=== PATIENT | male | born 1950 | race Caucasian/White ===

== ENCOUNTER 2018-01-26 16:27 | Emergency (ER) | payer OTHER, MEDICARE ==
[2018-01-26 17:02] LABS: #Eosinphils 0.4 thou/uL (0.0-0.7); #Lymphocytes 1.8 thou/uL (1.20-3.40); #Neutrophils 8.4 thou/uL (1.40-6.50); %Eosinophils 3.3 % (0.0-10.0); %Lymphocytes 15.8 % (21.0-51.0); %Monocytes 8.5 % (0.0-10.0); %Neutrophils 72.4 % (42.0-75.0); Hemoglobin 13.1 g/dL (14.0-18.0); Mean Corpuscular HGB CONC 31.3 g/dL (32.0-36.0); Mean Corpuscular Hemoglobin 30.3 pg (27.0-31.0); Mean Corpuscular Volume 96.8 fL (78.0-98.0); Mean Platelet Volume 6.1 fL (7.4-10.4); Platelet Count 406 thou/uL (130-400); RBC Distribution Width 13.2 % (11.5-14.5); Red Blood Cell (RBC) Count 4.31 mill/uL (4.70-6.10); White Blood Cell (WBC) Count 11.6 thou/uL (4.8-10.8)
[2018-01-26 17:22] LABS: ALT (SGPT) 11 U/L (8-55); AST (SGOT) 22 U/L (5-34); Albumin 3.7 g/dL (3.4-4.8); Alkaline Phosphatase 92 U/L (40-150); Anion Gap 9 mmol/L (10-20); BUN (Urea Nitrogen) 21 mg/dL (8.4-25.7); Bilirubin, Total 0.4 mg/dL (0.2-1.2); Calc. Creatinine Clearance 0 mL/min (70-130); Carbon Dioxide 22 mmol/L (23-31); Chloride 108 mmol/L (98-107); Estimated GFR-MDRD 90; Glucose 102 mg/dL (80-115); Potassium 4.4 mmol/L (3.5-5.1); Protein, Total 6.7 g/dL (5.8-8.1); Sodium 135 mmol/L (136-145)
[2018-01-26 17:25] LABS: Troponin I 0.013 ng/mL (< 0.028)
[2018-01-26] MEDS ORDERED: Azithromycin 250 MG TAB ONE ×2 (17:40)
[2018-01-26] MEDS ORDERED: Albuterol Sulfate 2.5 mg/3 ml Neb ONE (17:52)
--- NOTE | 2018-01-26 17:52 | RAD ---
SINGLE VIEW CHEST: Date: 01/16/18 COMPARISON: None. HISTORY: Shortness of breath and chest pain. FINDINGS: Single view of the chest shows a normal sized cardiomediastinal silhouette. There is no evidence of c onsolidation, mass, or pleural effusion. The bones are unremarkable. IMPRESSION: No evidence of acute cardiopulmonary disease. POS: TPC
[2018-01-26] MEDS ORDERED: Ibuprofen 200 MG TAB ONE (19:40)
[2018-01-26] MEDS ORDERED: Magnesium 2 GM/50 ML BAG (IN WATER) ONE (20:16)
--- NOTE | 2018-01-30 15:45 | EKG ---
Test Reason : Blood Pressure : / mmHG Vent. Rate : 090 BPM Atrial Rate : 090 BPM P-R Int : 166 ms QRS Dur : 080 ms QT Int : 370 ms P-R-T Axes : 088 041 069 degrees QTc Int : 452 ms Sinus rhythm with Premature atrial complexes with Abberant conduction Low voltage QRS Cannot rule out Anterior infarct , age undetermined Abnormal ECG Confirmed by MICHAEL ANGEL DO ([id number]), editor greeting card CADY TUCKER ([id number]) on 01/30/2018 3:45:06 PM Referred By: Confirmed By:MICHAEL ANGEL DO
== END 2018-01-27 01:49 | disposition short-term general hospital (02) ==
LOC: ERS 16:27
DX: J44.1 Chronic obstructive pulmonary disease with (acute) exacerbation (principal); F17.210 Nicotine dependence, cigarettes, uncomplicated; Z79.899 Other long term (current) drug therapy
CPT/HCPCS: 36415; 71045; 80053; 82553; 84145; 84484; 85025; 93005; 94640; 96365; J7611; J7620

== ENCOUNTER 2018-06-21 16:31 | Inpatient (IN) | payer MEDICARE, OTHER ==
[~2018-06-21 16:31] MED LIST: Iopamidol 370 76% 100 ML VIAL ONE
--- NOTE | 2018-06-21 17:14 | RAD ---
FExam: Chest one view HISTORY:COPD exacerbation, dyspnea Comparison: 01/26/2018 FINDINGS: Lungs: Hyperinflated lungs with interstitial prominence bilaterally Cardiac silhouette:Accentuated by portable technique and rotation Pulmonary vessels: Stable Pleural Spaces: Clear Pneumothorax: None Osseous abnormalities: None of acuity. IMPRESSION: COPD
[2018-06-21 17:18] LABS: #Basophils 0.1 thou/uL (0.0-0.2); #Eosinphils 0.5 thou/uL (0.0-0.7); #Monocytes 0.9 thou/uL (0.11-0.59); #Neutrophils 9.4 thou/uL (1.40-6.50); %Basophils 0.5 % (0.0-1.0); %Eosinophils 4.1 % (0.0-10.0); %Lymphocytes 15.4 % (21.0-51.0); %Monocytes 7.2 % (0.0-10.0); %Neutrophils 72.9 % (42.0-75.0); Hemoglobin 14.2 g/dL (14.0-18.0); Mean Corpuscular HGB CONC 32.2 g/dL (32.0-36.0); Mean Corpuscular Hemoglobin 30.1 pg (27.0-31.0); Mean Corpuscular Volume 93.4 fL (78.0-98.0); Mean Platelet Volume 6.4 fL (7.4-10.4); Platelet Count 344 thou/uL (130-400); RBC Distribution Width 13.9 % (11.5-14.5); Red Blood Cell (RBC) Count 4.72 mill/uL (4.70-6.10); White Blood Cell (WBC) Count 12.8 thou/uL (4.8-10.8)
[2018-06-21 17:29] LABS: ALT (SGPT) 11 U/L (8-55); AST (SGOT) 19 U/L (5-34); Albumin 4.1 g/dL (3.4-4.8); Alkaline Phosphatase 72 U/L (40-150); Anion Gap 15 mmol/L (10-20); BUN (Urea Nitrogen) 29 mg/dL (8.4-25.7); Bilirubin, Total 0.6 mg/dL (0.2-1.2); Calc. Creatinine Clearance 0 mL/min (70-130); Calcium 9.3 mg/dL (7.8-10.44); Carbon Dioxide 21 mmol/L (23-31); Chloride 104 mmol/L (98-107); Estimated GFR-MDRD 60; Globulin 2.8 g/dL (2.4-3.5); Glucose 98 mg/dL (80-115); Potassium 4.3 mmol/L (3.5-5.1); Protein, Total 6.9 g/dL (5.8-8.1); Sodium 136 mmol/L (136-145)
[2018-06-21 17:58] LABS: Actual Bicarbonate (HCO3a) 22.4 mEq/L (22-28); Analyzer IN Cardio ER; Base Excess (BEa) -1.1 mEq/L (-2.0 to +3.0); CO2 Tension 34.2 mmHg (35.0-45.0); Calcium, Ionized 1.23 mmol/L (1.12-1.30); Carboxyhemoglobin (COHb) 0.9 gm% (0.0-3.0); Hemoglobin (Hb) 14.8 g/dL (14.0-18.0); O2 Tension (PaO2) 66.7 mmHg (> 80.0); Potassium - ABG Lab 4.38 mmol/L (3.70-5.30); pH, Arterial 7.43 (7.35-7.45)
[2018-06-21 18:02] LABS: Puncture Site RR
[2018-06-21] MEDS ORDERED: Magnesium 2 GM/50 ML BAG (IN WATER) ONE (18:54)
[2018-06-21] MEDS ORDERED: Lorazepam 2 MG/ML VIAL ONE (19:36)
[2018-06-21] MEDS ORDERED: Azithromycin 500 MG VIAL ONE (19:43)
--- NOTE | 2018-06-21 20:23 | CT ---
FCT angiogram thorax with contrast: (CTA pulmonary angiogram) HISTORY: 68-year-old male with dyspnea TECHNIQUE: IV injection of iodinated contrast. Scan acquisition timing attempted to coincide with iodinated contrast bolus reaching maximal density in pulmonary arteries. 3-D MIP reconstructions. FINDINGS: Diffuse, severe emphysematous changes throughout both lungs, including multiple bullae at lung apices , and centrilobular emphysematous changes throughout the lungs. Approximately 20% of the stomach has herniated into the inferior mediastinum. No cardiomegaly. Tortuosity of thoracic aorta without dissec tion or aneurysm. Images are degraded by patient breathing motion. There is no pulmonary thromboembol ism. No pleural effusion or pneumothorax. No mediastinal or hilar lymphadenopathy. No airspace opacit y, suspicious pulmonary nodule, or pulmonary edema. IMPRESSION: 1) severe panlobular emphysema. 2) no pulmonary thromboembolism. 3) no acute findings
[2018-06-21] MEDS ORDERED: cefTRIAXone\\ROCEPHIN 1 GM VIAL ONE (21:38)
[2018-06-21] MEDS ORDERED: Ketorolac Tromethamine 30 MG/ML VIAL ONE (21:38)
[2018-06-21] MEDS ORDERED: Sodium Chloride 0.65% Nasal 44 ML BOT EA NARE PRN (22:00)
[2018-06-21] MEDS ORDERED: Calcium Carbonate 500 MG ChewTAB PO PRN (22:00)
[2018-06-21] MEDS ORDERED: HYDROcodone/Acetaminophen 5/325 mg Tablet PO PRN (22:00)
[2018-06-21] MEDS ORDERED: Bisacodyl 10 MG SUPP PR PRN (22:00)
[2018-06-21] MEDS ORDERED: Temazepam 15 MG CAP PO PRN (22:00)
[2018-06-21] MEDS ORDERED: Loperamide HCl 2 MG CAP PO PRN (22:00)
[2018-06-21] MEDS ORDERED: hydrALAZINE 20 MG/ML VIAL SLOW IVP PRN (22:00)
[2018-06-21] MEDS ORDERED: Eucerin (Mineral Oil/Petrolatum,White) 30 gm Jar TOP PRN (22:00)
[2018-06-21] MEDS ORDERED: Loratadine 10 MG TAB PO PRN (22:00)
[2018-06-21] MEDS ORDERED: Diabetic Tussin 200 MG/10 ML UDCUP PO PRN (22:00)
[2018-06-21] MEDS ORDERED: Artificial Tears 18 DROP/0.9 ML EA EYE PRN (22:00)
[2018-06-21 22:35] VITALS: BMI 18.5
[2018-06-21] MEDS: methylPREDNISolone Sod Succ 40 MG VIAL IVP SCH (23:41)
[2018-06-21] MEDS ORDERED: methylPREDNISolone Sod Succ/PF 125 MG/2 ML VIAL IVP SCH (23:59)
[2018-06-22 00:07] LABS: Troponin I 0.021 ng/mL (< 0.028)
--- NOTE | 2018-06-22 02:45 | HP ---
PRIMARY CARE PHYSICIAN: Dr. Andres Avendano at [facility]. DATE OF SERVICE: 06/21/2018 REASON FOR ADMISSION: Acute on chronic respiratory failure, COPD exacerbation. HISTORY OF PRESENT ILLNESS: A 68-year-old male who has underlying history of severe emphysema as well as chronic respiratory failure, on home oxygen therapy who presented to emergency room because of increasing shortness of breath. The patient was tachypneic, tachycardic at home. He was not able to talk in full sentence. This patient has several admission in different hospital for COPD exacerbation as well as several emergency room visit. This patient is normally following at [facility] in [place]. In the emergency room, they got approval to stay in our hospital. He was not stable to be discharged because initially he required CPAP machine in the emergency room and subsequently, he slightly improved. At that point, CPAP machine was discontinued and we decided to keep this patient in the hospital. The patient was also anxious and he responded well in the emergency room. He received Rocephin, azithromycin, and several rounds of DuoNeb therapy. When I saw this patient in the emergency room at that time, he was still having shortness of breath, but improved after BiPAP. ALLERGIES: NO KNOWN DRUG ALLERGIES. CURRENT HOME MEDICATIONS: 1. Albuterol nebulization 4 times daily. 2. Amlodipine 5 mg daily. 3. Lipitor 5 mg daily. 4. Pulmicort nebulization twice daily. 5. Vitamin D3 of 2000 units p.o. daily. 6. Mucinex 400 mg twice daily. 7. Claritin 10 mg daily as needed. 8. Magnesium oxide 400 mg daily. 9. Flomax 0.4 mg p.o. daily. PAST MEDICAL HISTORY: Severe COPD; chronic respiratory failure, on home oxygen; benign enlargement of prostate, hypertension, vitamin D deficiency, dyslipidemia. PAST SURGICAL HISTORY: Hernia x2, tonsillectomy, appendicectomy, left knee surgery. PAST PSYCHIATRIC HISTORY: Reviewed and negative. SOCIAL HISTORY: The patient is . He is former smoker. He quit smoking one year ago. He drinks alcohol socially. He denies any other illicit drug abuse. The patient has history of smoking half pack per day for 30 years. REVIEW OF SYSTEMS: CONSTITUTIONAL: Negative for weight loss or gain, ability to conduct usual activities. SKIN: Negative for rash, itching. EYES: Negative for double vision, pain. ENT/MOUTH: Negative for nose bleeding, neck stiffness, pain, tenderness. CARDIOVASCULAR: Negative for palpitations, dyspnea on exertion, orthopnea. RESPIRATORY: Negative for shortness of breath, wheezing, cough, hemoptysis, fever or night sweats. GASTROINTESTINAL: Negative for poor appetite, abdominal pain, heartburn, nausea , vomiting, constipation, or diarrhea. GENITOURINARY: Negative for urgency, frequency, dysuria, nocturia. MUSCULOSKELETAL: Negative for pain, swelling. NEUROLOGIC/PSYCHIATRIC: Negative for anxiety, depression. ALLERGY/IMMUNOLOGIC: Negative for skin rash, bleeding tendency. Please see my HPI for pertinent positives and negatives. All other review of systems reviewed and negative except as mentioned in HPI. FAMILY HISTORY: No strong family history of premature coronary artery disease, stroke, or cancer. EMERGENCY ROOM COURSE: The patient has received Toradol, Rocephin 1 g, azithromycin 500 mg, Ativan 1 mg, magnesium sulfate 2 g, DuoNeb therapy. PHYSICAL EXAMINATION: VITAL SIGNS: On arrival, blood pressure 142/105, pulse 110, respiratory rate 34 , temperature 99, and saturation 99% on 2 L oxygen. Weight 60.3 kg. GENERAL: The patient is currently alert, awake, mild respiratory distress. HEENT: Head; normocephalic, atraumatic. Eyes; pupils round, reactive to light. Extraocular muscle intact. ENT: Oropharynx within normal limits. Moist mucous membranes. No oral lesion. No pharyngeal erythema. No exudate. NECK: Supple. No JVD. No thyromegaly. No carotid bruit. No jugular venous distention. LUNGS: Air entry reduced bilaterally. No wheeze. No accessory muscles of respiration in use. CARDIAC: S1 and S2, regular. Tachycardia. No murmur. No gallop. No rub. ABDOMEN: Soft. Bowel sounds present. Nontender. Nondistended. No organomegaly. No mass. No suprapubic tenderness. BACK: Unremarkable. No CVA tenderness. EXTREMITIES: Upper extremities; passive movement of all joints normal. Lower extremity, no edema. Good distal pulsation. SKIN: No skin rash. HEMATOLOGICAL: No lymphadenopathy. PSYCHIATRIC: Normal affect. SIGNIFICANT LABORATORY DATA: EKG showing sinus tachycardia, low voltage QRS. Chest x-ray showing COPD changes. CT angiography, no evidence of pulmonary embolism. COPD changes. CBC; WBC 12.8, hemoglobin 14.2, platelets 344. ABG; pH 7.43, bicarb 22.4, CO2 34.2, O2 66.7. BMP; sodium 136, potassium 4.3, chloride 104, carbon dioxide 21, BUN 29, creatinine 1.20, glucose 98, calcium 9.3. LFTs; AST is 19, ALT 11, alkaline phosphatase 72, and albumin 4.1. Cardiac enzyme negative x3. ASSESSMENT AND PLAN: 1. Acute on chronic respiratory failure with hypoxia. The patient required BiPAP in the emergency room for mild respiratory distress secondary to chronic obstructive pulmonary disease that was turned off after short-term. Currently stabilized. 2. Chronic obstructive pulmonary disease exacerbation. The patient has end- stage chronic obstructive pulmonary disease. He had several admission for flare up and emergency room visit. At this point, the patient has some improvement, but he is not ready to be discharged. We will continue with DuoNeb q.4 hourly, Solu- Medrol 40 mg IV q.6 hourly, Dulera 2 puffs inhalation b.i.d., empiric antibiotic therapy with Levaquin 750 mg daily, symptomatic treatment. If the patient condition does not improve in next 24 to 48 hours, then we will consider changing to inpatient status. 3. Hypertension. We will continue amlodipine 5 mg p.o. daily. 4. Dyslipidemia. We will continue Lipitor 5 mg p.o. daily. 5. Vitamin D deficiency. Continue vitamin D3 of 2000 units p.o. daily. 6. Benign enlargement of prostate. Continue Flomax 0.4 mg p.o. daily. 7. Gastroesophageal reflux disease. Continue Protonix 40 mg p.o. daily. CODE STATUS: The patient is full code. The patient's is surrogate decision maker. DISPOSITION PLAN: Disposition plan based on clinical course. Plan of care discussed with the patient and his at bedside in detail. Job ID: [id number] MTDD
[2018-06-22] MEDS: methylPREDNISolone Sod Succ 40 MG VIAL IVP SCH ×4 (05:19→23:34)
[2018-06-22 05:26] LABS: #Lymphocytes 1.1 thou/uL (1.20-3.40); #Monocytes 0.4 thou/uL (0.11-0.59); #Neutrophils 8.4 thou/uL (1.40-6.50); %Basophils 0.2 % (0.0-1.0); %Eosinophils 0.3 % (0.0-10.0); %Lymphocytes 11.3 % (21.0-51.0); %Monocytes 3.5 % (0.0-10.0); %Neutrophils 84.7 % (42.0-75.0); Hemoglobin 12.3 g/dL (14.0-18.0); Mean Corpuscular HGB CONC 32.1 g/dL (32.0-36.0); Mean Corpuscular Hemoglobin 30.2 pg (27.0-31.0); Mean Corpuscular Volume 94.1 fL (78.0-98.0); Mean Platelet Volume 6.6 fL (7.4-10.4); Platelet Count 305 thou/uL (130-400); RBC Distribution Width 13.6 % (11.5-14.5); Red Blood Cell (RBC) Count 4.07 mill/uL (4.70-6.10); White Blood Cell (WBC) Count 9.9 thou/uL (4.8-10.8)
[2018-06-22 05:49] LABS: Anion Gap 14 mmol/L (10-20); BUN (Urea Nitrogen) 39 mg/dL (8.4-25.7); Calc. Creatinine Clearance 42 mL/min (70-130); Calcium 9.2 mg/dL (7.8-10.44); Carbon Dioxide 23 mmol/L (23-31); Chloride 104 mmol/L (98-107); Estimated GFR-MDRD 50; Glucose 215 mg/dL (80-115); Potassium 4.3 mmol/L (3.5-5.1); Sodium 137 mmol/L (136-145)
[2018-06-22] MEDS: Mometasone/Formoterol 120 PUFF INHALER INH SCH ×2 (06:27→18:15)
[2018-06-22] MEDS ORDERED: Mometasone Furoate 120 PUFF 220 MCG INH SCH (06:30)
[2018-06-22] MEDS: Enoxaparin Sodium 40 MG/0.4 ML SYRINGE SC SCH (08:12)
[2018-06-22] MEDS: Atorvastatin Calcium 10 MG TAB PO SCH (08:13)
[2018-06-22] MEDS: Amlodipine 5 MG TAB PO SCH (08:15)
[2018-06-22] MEDS: guaiFENesin ER 600 MG TAB PO SCH ×2 (08:15→21:02)
[2018-06-22] MEDS: Magnesium Oxide 400 MG TAB PO SCH (08:15)
[2018-06-22] MEDS: Tamsulosin HCl 0.4 MG CAP PO SCH (08:15)
[2018-06-22] MEDS ORDERED: Prevnar 13-Val Conj/PF 0.5 ML SYRINGE IM ONE (09:00)
[2018-06-22] MEDS ORDERED: Famotidine 20 MG TAB PO SCH (09:00)
[2018-06-22] MEDS ORDERED: Non-Formulary Item 1 EACH (Budesonide [Pulmicort Flexhaler] 2 PUFF) INH SCH (09:00)
--- NOTE | 2018-06-22 15:53 | PDOC.PN ---
- Subjective Encounter Start Date: 06/22/18 Encounter Start Time: 10:00 Subjective: pt up in bed still complains of sob - Objective Resuscitation Status - Order Detail: 06/21/18 21:56 Resuscitation Status Routine Resuscitation Status: FULL: Full Resuscitation Vital Signs & Weight: Vital Signs (12 hours) Temp Pulse Resp BP Pulse Ox 06/22/18 14:53 98.6 F 92 16 109/55 L 95 06/22/18 14:23 93 20 98 06/22/18 11:26 98.3 F 97 20 111/61 95 06/22/18 10:18 94 20 98 06/22/18 08:15 98 06/22/18 07:25 98 F 98 19 119/63 96 06/22/18 06:35 92 20 96 06/22/18 06:34 96 06/22/18 06:27 92 20 96 06/22/18 05:25 97.5 F L 98 22 H 126/59 L 98 Weight Admit Weight 132 lb 11.2 oz Weight 132 lb 11.2 oz I&O: 06/21/18 06/22/18 06/23/18 06:59 06:59 06:59 Intake Total 900 Output Total 700 400 Balance 200 -400 Result Diagrams: 06/22/18 05:03 06/22/18 05:03 Phys Exam - Physical Examination Neck: no nodes, no JVD, supple, full ROM diminished breath sounds Cardiovascular: RRR, no significant murmur, no rub, gallop, irregular Gastrointestinal: soft, non-tender, no distention, positive bowel sounds Musculoskeletal: no edema, pulses present, edema present Dx/Plan (1) COPD exacerbation Code(s): J44.1 - CHRONIC OBSTRUCTIVE PULMONARY DISEASE W (ACUTE) EXACERBATION Status: Acute (2) HTN (hypertension) Code(s): I10 - ESSENTIAL (PRIMARY) HYPERTENSION Status: Acute - Plan will continue abx/steroids and duonebs. -: pt has sever emphysema on home oxygen. * . Review of Systems - Review of Systems Respiratory: Shortness of Breath Cardiovascular: negative: chest pain, palpitations, orthopnea, paroxysmal nocturnal dyspnea, edema, light headedness, other Gastrointestinal: negative: Nausea, Vomiting, Abdominal Pain, Diarrhea, Constipation, Melena, Hematochezia, Other Genitourinary: negative: Dysuria, Frequency, Incontinence, Hematuria, Retention , Other - Medications/Allergies Allergies/Adverse Reactions: Allergies Allergy/AdvReac Type Severity Reaction Status Date / Time No Known Drug Allergies Allergy Verified 06/21/18 22:28 Medications: Current Medications Acetaminophen (Tylenol) 650 mg PO Q4H PRN PRN Reason: Headache/Fever/Mild Pain (1-3) Hydrocodone Bitart/Acetaminophen ([place] 5/325) 1 tab PO Q4H PRN PRN Reason: Moderate Pain (4-6) Last Admin: 06/22/18 12:52 Dose: 1 tab Albuterol/Ipratropium (Duoneb) 3 ml NEB [id number] [facility] Last Admin: 06/22/18 14:23 Dose: 3 ml Amlodipine Besylate (Norvasc) 5 mg PO DAILY [facility] Last Admin: 06/22/18 08:15 Dose: 5 mg Artificial Tears (Tears Naturale) 2 drop EA EYE PRN PRN PRN Reason: Dry Eyes Atorvastatin Calcium (Lipitor) 5 mg PO DAILY [facility] Last Admin: 06/22/18 08:13 Dose: 5 mg Bisacodyl (Dulcolax) 10 mg [place] DAILYPRN PRN PRN Reason: Constipation Calcium Carbonate (Tums) 1,000 mg PO Q4H PRN PRN Reason: Heartburn or Indigestion Cholecalciferol (Vitamin D3) 2,000 units PO DAILY [facility] Last Admin: 06/22/18 08:14 Dose: 2,000 units Enoxaparin Sodium (Lovenox) 40 mg SC 0900 [facility] Last Admin: 06/22/18 08:12 Dose: 40 mg Guaifenesin (Mucinex) 600 mg PO Q12HR [facility] Last Admin: 06/22/18 08:15 Dose: 600 mg Guaifenesin (Robitussin Sf) 200 mg PO Q4H PRN PRN Reason: Cough Hydralazine HCl (Apresoline) 10 mg SLOW IVP Q4H PRN PRN Reason: SBP > 180 and HR < 70 Levofloxacin 750 mg/ Device 150 mls @ 100 mls/hr IVPB Q24HR [facility] Last Admin: 06/21/18 23:37 Dose: 150 mls Loperamide HCl (Imodium) 2 mg PO PRN PRN PRN Reason: Diarrhea/Loose Stools Loratadine (Claritin) 10 mg PO DAILYPRN PRN PRN Reason: Sinus Symptoms Lorazepam (Ativan) 0.5 mg PO Q4H PRN PRN Reason: Anxiety Magnesium Oxide (Magnesium Oxide) 400 mg PO DAILY [facility] Last Admin: 06/22/18 08:15 Dose: 400 mg Methylprednisolone Sodium Succinate (Solu-Medrol) 40 mg IVP Q6HR [facility] Last Admin: 06/22/18 12:54 Dose: 40 mg Mineral Oil/White Petrolatum (Eucerin Cream) 0 gm TOP BIDPRN PRN PRN Reason: Dry Skin Mometasone Furoate/Formoterol Fumar (Dulera 200 Mcg/5 Mcg Inhaler) 2 puff INH BID-RT [facility] Last Admin: 06/22/18 06:27 Dose: 2 puff Pantoprazole Sodium (Protonix) 40 mg PO DAILY [facility] Last Admin: 06/22/18 08:13 Dose: 40 mg Senna/Docusate Sodium (Senokot S) 2 tab PO BIDPRN PRN PRN Reason: Constipation Sodium Chloride ([place] Nasal [place] 0.65%) 0 ml EA NARE QIDPRN PRN PRN Reason: Nasal Congestion Sterile Water (Bacteriostatic Water) 1 ml FS PRN PRN PRN Reason: RECONSTITUTION Tamsulosin HCl (Flomax) 0.4 mg PO DAILY [facility] Last Admin: 06/22/18 08:15 Dose: 0.4 mg Temazepam (Restoril) 15 mg PO HSPRN PRN PRN Reason: Insomnia Last Admin: 06/21/18 23:41 Dose: 15 mg Trazodone HCl (Desyrel) 50 mg PO HS [facility]
[2018-06-22] MEDS: traZODone HCl 50 MG TAB PO SCH (21:02)
[2018-06-23 05:23] LABS: Anion Gap 13 mmol/L (10-20); BUN (Urea Nitrogen) 37 mg/dL (8.4-25.7); Calc. Creatinine Clearance 53 mL/min (70-130); Calcium 8.8 mg/dL (7.8-10.44); Carbon Dioxide 21 mmol/L (23-31); Chloride 106 mmol/L (98-107); Estimated GFR-MDRD 64; Glucose 123 mg/dL (80-115); Potassium 4.5 mmol/L (3.5-5.1); Sodium 135 mmol/L (136-145)
[2018-06-23] MEDS: methylPREDNISolone Sod Succ 40 MG VIAL IVP SCH ×3 (06:20→21:07)
[2018-06-23] MEDS: Mometasone/Formoterol 120 PUFF INHALER INH SCH ×2 (06:48→18:27)
[2018-06-23] MEDS: Enoxaparin Sodium 40 MG/0.4 ML SYRINGE SC SCH (08:12)
[2018-06-23] MEDS: Magnesium Oxide 400 MG TAB PO SCH (08:13)
[2018-06-23] MEDS: guaiFENesin ER 600 MG TAB PO SCH ×2 (08:13→21:04)
[2018-06-23] MEDS: Tamsulosin HCl 0.4 MG CAP PO SCH (08:13)
[2018-06-23] MEDS: Amlodipine 5 MG TAB PO SCH (08:14)
[2018-06-23] MEDS: Atorvastatin Calcium 10 MG TAB PO SCH (08:14)
[2018-06-23] MEDS: Senokot S 8.6-50 MG TAB PO PRN ×2 (12:35→21:04)
[2018-06-23] MEDS: Bacteriostatic Water 30 ML VIAL FS PRN (12:36)
--- NOTE | 2018-06-23 18:25 | CON ---
DATE OF CONSULTATION: 06/23/2018 CONSULTING PHYSICIAN: Deysi Perdomo MD REASON FOR CONSULTATION: COPD exacerbation. HISTORY OF PRESENT ILLNESS: Mr. Albert is a 68-year-old male, who was hospitalized 2 days ago with increasing shortness of breath above his baseline COPD symptoms at home. He says he was diagnosed with COPD several years ago and he is currently managed by [facility] in [place]. He has been on home O2 between 1 and 2 L nasal cannula continuously since last year. He was smoking up until last January when he finally quit. He is not very functional at home. He can get up and fix himself coffee and can go to the front porch to sit. He has given up driving and does not leave the house very much at all. His main symptom is shortness of breath. He occasionally has cough, but that is not an overwhelming problem. He is not on any type of ventilatory assist device at home such as BiPAP or trilogy. PAST MEDICAL HISTORY: 1. Severe chronic obstructive pulmonary disease. 2. Chronic hypoxemia. 3. Benign prostatic hypertrophy. 4. Hypertension. 5. Hyperlipidemia. PAST SURGICAL HISTORY: Two herniorrhaphies, tonsillectomy, appendectomy, and left knee surgery. SOCIAL HISTORY: He smoked 2 packs per day for approximately 40 years, quit in January. Very occasionally drinks alcohol. Does not use illicit drugs. Lives at home with his in [place]. MEDICATIONS: Prior to admission; 1. Trazodone 50 mg nightly. 2. Atrovent HFA 2 puffs 4 times daily. 3. Flomax 0.4 mg daily. 4. Magnesium oxide 400 mg daily. 5. Loratadine 10 mg daily. 6. Guaifenesin 200 mg every 4 hours as needed. 7. Prolia 60 mg as directed. 8. Pulmicort Flexhaler 2 puffs b.i.d. 9. Atorvastatin 5 mg daily. 10. Norvasc 5 mg daily. 11. Albuterol RespiClick 4 times daily. 12. Omeprazole 20 mg daily. 13. I think he also uses a nebulizer device at home. His current inpatient medications are remarkable for; 1. Methylprednisolone at 40 mg b.i.d. 2. DuoNeb every 4 hours. 3. Levaquin at a dose of 750 mg daily. 4. He is on additional medications that are not pertinent to his pulmonary status. REVIEW OF SYSTEMS: He has had no fever, chills, chest pain, palpitations, hematemesis, hemoptysis, hematuria, or dysuria. Remainder of 12-point review of systems are negative except for that listed in history of present illness. PHYSICAL EXAMINATION: VITAL SIGNS: Temperature 98.6, pulse 112, respirations 20, O2 saturation 98% on 1 L, and blood pressure 103/51. GENERAL: The patient is awake and alert. He is clearly dyspneic at rest. HEENT: Pupils react. Sclerae icteric. Oropharynx clear. NECK: No adenopathy, JVD, or bruits. LUNGS: He has distant breath sounds bilateral soft wheezing, best heard anteriorly. CARDIOVASCULAR: S1 and S2. Regular without audible murmur. ABDOMEN: Soft, nontender, and nondistended. EXTREMITIES: 2+ clubbing. No cyanosis or edema. LABORATORY DATA: White blood cell count 9.9, hematocrit 38.3, and platelet count 305. Blood gas; pH of 7.43, pCO2 of 34, and pO2 of 66 on 2 L. Sodium 135, potassium 4.5, chloride 106, CO2 of 21, BUN 37, creatinine 1.1, and glucose 123. ASSESSMENT: 1. Chronic obstructive pulmonary disease with exacerbation. 2. Chronic hypoxic respiratory failure without hypercapnia. RECOMMENDATION: 1. Check PFT to see what his overall lung function is. 2. Continue steroids, nebulizer therapy, and antibiotics as you are doing. 3. Because he does not have hypercapnia, he is unlikely to qualify for any type of ventilatory support at home. Overall besides checking the PFTs, I agree with the current care. Unfortunately, there is not much else that can be done for this gentleman at this time. Job ID: [id number]
[2018-06-23] MEDS: traZODone HCl 50 MG TAB PO SCH (21:03)
--- NOTE | 2018-06-23 21:57 | PDOC.PN ---
- Subjective Encounter Start Date: 06/23/18 Encounter Start Time: 10:00 Subjective: pt up in bed feels very sob - Objective Resuscitation Status - Order Detail: 06/21/18 21:56 Resuscitation Status Routine Resuscitation Status: FULL: Full Resuscitation Vital Signs & Weight: Vital Signs (12 hours) Temp Pulse Resp BP Pulse Ox 06/23/18 19:02 98.0 F 95 12 120/57 L 93 L 06/23/18 14:36 112 H 20 98 06/23/18 14:15 98.6 F 74 20 103/51 L 96 06/23/18 11:00 98.5 F 102 H 20 105/49 L 95 06/23/18 10:25 80 20 98 Weight Admit Weight 132 lb 11.2 oz Weight 132 lb 11.2 oz I&O: 06/22/18 06/23/18 06/24/18 06:59 06:59 06:59 Intake Total 900 1500 Output Total 700 2100 Balance 200 -600 Result Diagrams: 06/22/18 05:03 06/23/18 05:02 Phys Exam - Physical Examination Neck: no nodes, no JVD, supple, full ROM diminished all over Cardiovascular: RRR, no significant murmur, no rub, gallop, irregular Dx/Plan (1) COPD exacerbation Code(s): J44.1 - CHRONIC OBSTRUCTIVE PULMONARY DISEASE W (ACUTE) EXACERBATION Status: Acute (2) HTN (hypertension) Code(s): I10 - ESSENTIAL (PRIMARY) HYPERTENSION Status: Acute - Plan pt continues to feel sob. cta indicated severe lung disease. -: will continue steroids/duoneb. will check bnp. -: pt requested pulmonary consult. blood cx positve will monitor. * . Review of Systems - Review of Systems Respiratory: Shortness of Breath Cardiovascular: negative: chest pain, palpitations, orthopnea, paroxysmal nocturnal dyspnea, edema, light headedness, other Gastrointestinal: negative: Nausea, Vomiting, Abdominal Pain, Diarrhea, Constipation, Melena, Hematochezia, Other Genitourinary: negative: Dysuria, Frequency, Incontinence, Hematuria, Retention , Other - Medications/Allergies Allergies/Adverse Reactions: Allergies Allergy/AdvReac Type Severity Reaction Status Date / Time No Known Drug Allergies Allergy Verified 06/21/18 22:28 Medications: Current Medications Acetaminophen (Tylenol) 650 mg PO Q4H PRN PRN Reason: Headache/Fever/Mild Pain (1-3) Hydrocodone Bitart/Acetaminophen ([place] 5/325) 1 tab PO Q4H PRN PRN Reason: Moderate Pain (4-6) Last Admin: 06/22/18 12:52 Dose: 1 tab Albuterol/Ipratropium (Duoneb) 3 ml NEB Q4IL-UY [facility] Last Admin: 06/23/18 18:17 Dose: 3 ml Amlodipine Besylate (Norvasc) 5 mg PO DAILY [facility] Last Admin: 06/23/18 08:14 Dose: 5 mg Artificial Tears (Tears Naturale) 2 drop EA EYE PRN PRN PRN Reason: Dry Eyes Atorvastatin Calcium (Lipitor) 5 mg PO DAILY [facility] Last Admin: 06/23/18 08:14 Dose: 5 mg Bisacodyl (Dulcolax) 10 mg [place] DAILYPRN PRN PRN Reason: Constipation Calcium Carbonate (Tums) 1,000 mg PO Q4H PRN PRN Reason: Heartburn or Indigestion Cholecalciferol (Vitamin D3) 2,000 units PO DAILY [facility] Last Admin: 06/23/18 08:13 Dose: 2,000 units Enoxaparin Sodium (Lovenox) 40 mg SC 0900 [facility] Last Admin: 06/23/18 08:12 Dose: 40 mg Guaifenesin (Mucinex) 600 mg PO Q12HR [facility] Last Admin: 06/23/18 21:04 Dose: 600 mg Guaifenesin (Robitussin Sf) 200 mg PO Q4H PRN PRN Reason: Cough Hydralazine HCl (Apresoline) 10 mg SLOW IVP Q4H PRN PRN Reason: SBP > 180 and HR < 70 Levofloxacin 750 mg/ Device 150 mls @ 100 mls/hr IVPB Q24HR [facility] Last Admin: 06/23/18 21:10 Dose: 150 mls Loperamide HCl (Imodium) 2 mg PO PRN PRN PRN Reason: Diarrhea/Loose Stools Loratadine (Claritin) 10 mg PO DAILYPRN PRN PRN Reason: Sinus Symptoms Lorazepam (Ativan) 0.5 mg PO Q4H PRN PRN Reason: Anxiety Magnesium Oxide (Magnesium Oxide) 400 mg PO DAILY [facility] Last Admin: 06/23/18 08:13 Dose: 400 mg Methylprednisolone Sodium Succinate (Solu-Medrol) 40 mg IVP BID [facility] Last Admin: 06/23/18 21:07 Dose: 40 mg Mineral Oil/White Petrolatum (Eucerin Cream) 0 gm TOP BIDPRN PRN PRN Reason: Dry Skin Mometasone Furoate/Formoterol Fumar (Dulera 200 Mcg/5 Mcg Inhaler) 2 puff INH BID-RT [facility] Last Admin: 06/23/18 18:27 Dose: 2 puff Pantoprazole Sodium (Protonix) 40 mg PO DAILY [facility] Last Admin: 06/23/18 08:13 Dose: 40 mg Senna/Docusate Sodium (Senokot S) 2 tab PO BIDPRN PRN PRN Reason: Constipation Last Admin: 06/23/18 21:04 Dose: 2 tab Sodium Chloride ([place] Nasal [place] 0.65%) 0 ml EA NARE QIDPRN PRN PRN Reason: Nasal Congestion Sterile Water (Bacteriostatic Water) 1 ml FS PRN PRN PRN Reason: RECONSTITUTION Last Admin: 06/23/18 12:36 Dose: 1 ml Tamsulosin HCl (Flomax) 0.4 mg PO DAILY [facility] Last Admin: 06/23/18 08:13 Dose: 0.4 mg Temazepam (Restoril) 15 mg PO HSPRN PRN PRN Reason: Insomnia Last Admin: 06/21/18 23:41 Dose: 15 mg Trazodone HCl (Desyrel) 50 mg PO HS [facility] Last Admin: 06/23/18 21:03 Dose: 50 mg
[2018-06-24] MEDS: Mometasone/Formoterol 120 PUFF INHALER INH SCH ×2 (06:17→18:57)
[2018-06-24] MEDS: Amlodipine 5 MG TAB PO SCH (08:58)
[2018-06-24] MEDS: Enoxaparin Sodium 40 MG/0.4 ML SYRINGE SC SCH (08:59)
[2018-06-24] MEDS: Atorvastatin Calcium 10 MG TAB PO SCH (08:59)
[2018-06-24] MEDS: Tamsulosin HCl 0.4 MG CAP PO SCH (09:00)
[2018-06-24] MEDS: Senokot S 8.6-50 MG TAB PO PRN (09:00)
[2018-06-24] MEDS: guaiFENesin ER 600 MG TAB PO SCH ×2 (09:00→21:08)
[2018-06-24] MEDS: Magnesium Oxide 400 MG TAB PO SCH (09:00)
[2018-06-24] MEDS: Bacteriostatic Water 30 ML VIAL FS PRN (09:01)
[2018-06-24] MEDS: Acetaminophen 325 MG TAB PO PRN (09:01)
[2018-06-24] MEDS: methylPREDNISolone Sod Succ 40 MG VIAL IVP SCH ×2 (09:01→21:10)
[2018-06-24] MEDS ORDERED: Furosemide 20 MG/2 ML VIAL SLOW IVP SCH (09:30)
--- NOTE | 2018-06-24 10:24 | PRG ---
DATE OF SERVICE: 06/24/2018 SUBJECTIVE: I saw Mr. Fisher while he was getting an echocardiogram. He says his breathing is about the same. OBJECTIVE: VITAL SIGNS: Temperature 97.9, pulse 89, blood pressure 119/59, O2 saturation 97%. HEENT: Unremarkable. NECK: No JVD. LUNGS: Diminished breath sounds throughout. No active wheezing. CARDIAC: S1, S2 regular. ABDOMEN: Soft. EXTREMITIES: No edema. ASSESSMENT: Chronic obstructive pulmonary disease with exacerbation. PLAN: Await PFT. He is continuing nebulization treatments, steroids, and antibiotics. Job ID: [id number]
[2018-06-24] MEDS: Lorazepam 0.5 MG TAB PO PRN ×2 (12:01→18:36)
--- NOTE | 2018-06-24 19:32 | PDOC.PN ---
- Subjective Encounter Start Date: 06/24/18 Encounter Start Time: 14:45 Subjective: pt up in bed feels better - Objective Resuscitation Status - Order Detail: 06/21/18 21:56 Resuscitation Status Routine Resuscitation Status: FULL: Full Resuscitation Vital Signs & Weight: Vital Signs (12 hours) Temp Pulse Resp BP BP Pulse Ox 06/24/18 18:34 106 H 24 H 99 06/24/18 14:55 98.3 F 103 H 22 H 120/82 96 06/24/18 13:37 84 18 96 06/24/18 12:05 95 06/24/18 11:05 98.5 F 108 H 22 H 131/79 94 L 06/24/18 10:04 85 16 96 06/24/18 08:58 89 119/59 L 06/24/18 08:05 97 Weight Admit Weight 132 lb 11.2 oz Weight 132 lb 11.2 oz I&O: 06/23/18 06/24/18 06/25/18 06:59 06:59 06:59 Intake Total 1500 480 Output Total 2100 Balance -600 480 Result Diagrams: 06/22/18 05:03 06/23/18 05:02 Phys Exam - Physical Examination Neck: no nodes, no JVD, supple, full ROM diminished breath sound all over Cardiovascular: RRR, no significant murmur, no rub, gallop, irregular Gastrointestinal: soft, non-tender, no distention, positive bowel sounds Dx/Plan (1) COPD exacerbation Code(s): J44.1 - CHRONIC OBSTRUCTIVE PULMONARY DISEASE W (ACUTE) EXACERBATION Status: Acute (2) HTN (hypertension) Code(s): I10 - ESSENTIAL (PRIMARY) HYPERTENSION Status: Acute - Plan pt felt better after low dose lasix, will give one yohan also -: appreciate pulm's input. continue steroids and abx for now -: echo pending. * . Review of Systems - Review of Systems Respiratory: Shortness of Breath. negative: Cough, Dry, Hemoptysis, SOB with Excertion, Pleuritic Pain, Sputum, Wheezing Cardiovascular: negative: chest pain, palpitations, orthopnea, paroxysmal nocturnal dyspnea, edema, light headedness, other Gastrointestinal: negative: Nausea, Vomiting, Abdominal Pain, Diarrhea, Constipation, Melena, Hematochezia, Other - Medications/Allergies Allergies/Adverse Reactions: Allergies Allergy/AdvReac Type Severity Reaction Status Date / Time No Known Drug Allergies Allergy Verified 06/21/18 22:28 Medications: Current Medications Acetaminophen (Tylenol) 650 mg PO Q4H PRN PRN Reason: Headache/Fever/Mild Pain (1-3) Last Admin: 06/24/18 09:01 Dose: 650 mg Hydrocodone Bitart/Acetaminophen ([place] 5/325) 1 tab PO Q4H PRN PRN Reason: Moderate Pain (4-6) Last Admin: 06/22/18 12:52 Dose: 1 tab Albuterol/Ipratropium (Duoneb) 3 ml NEB [id number] [facility] Last Admin: 06/24/18 18:34 Dose: 3 ml Alprazolam (Xanax) 0.5 mg PO Q6H PRN PRN Reason: Anxiety Amlodipine Besylate (Norvasc) 5 mg PO DAILY [facility] Last Admin: 06/24/18 08:58 Dose: 5 mg Artificial Tears (Tears Naturale) 2 drop EA EYE PRN PRN PRN Reason: Dry Eyes Atorvastatin Calcium (Lipitor) 5 mg PO DAILY [facility] Last Admin: 06/24/18 08:59 Dose: 5 mg Bisacodyl (Dulcolax) 10 mg [place] DAILYPRN PRN PRN Reason: Constipation Calcium Carbonate (Tums) 1,000 mg PO Q4H PRN PRN Reason: Heartburn or Indigestion Cholecalciferol (Vitamin D3) 2,000 units PO DAILY [facility] Last Admin: 06/24/18 08:59 Dose: 2,000 units Enoxaparin Sodium (Lovenox) 40 mg SC 0900 [facility] Last Admin: 06/24/18 08:59 Dose: 40 mg Guaifenesin (Mucinex) 600 mg PO Q12HR [facility] Last Admin: 06/24/18 09:00 Dose: 600 mg Guaifenesin (Robitussin Sf) 200 mg PO Q4H PRN PRN Reason: Cough Hydralazine HCl (Apresoline) 10 mg SLOW IVP Q4H PRN PRN Reason: SBP > 180 and HR < 70 Levofloxacin 750 mg/ Device 150 mls @ 100 mls/hr IVPB Q24HR [facility] Last Admin: 06/23/18 21:10 Dose: 150 mls Loperamide HCl (Imodium) 2 mg PO PRN PRN PRN Reason: Diarrhea/Loose Stools Loratadine (Claritin) 10 mg PO DAILYPRN PRN PRN Reason: Sinus Symptoms Lorazepam (Ativan) 0.5 mg PO Q4H PRN PRN Reason: Anxiety Last Admin: 06/24/18 18:36 Dose: 0.5 mg Magnesium Oxide (Magnesium Oxide) 400 mg PO DAILY [facility] Last Admin: 06/24/18 09:00 Dose: 400 mg Methylprednisolone Sodium Succinate (Solu-Medrol) 40 mg IVP BID [facility] Last Admin: 06/24/18 09:01 Dose: 40 mg Mineral Oil/White Petrolatum (Eucerin Cream) 0 gm TOP BIDPRN PRN PRN Reason: Dry Skin Mometasone Furoate/Formoterol Fumar (Dulera 200 Mcg/5 Mcg Inhaler) 2 puff INH BID-RT [facility] Last Admin: 06/24/18 18:57 Dose: 2 puff Pantoprazole Sodium (Protonix) 40 mg PO DAILY [facility] Last Admin: 06/24/18 09:00 Dose: 40 mg Senna/Docusate Sodium (Senokot S) 2 tab PO BIDPRN PRN PRN Reason: Constipation Last Admin: 06/24/18 09:00 Dose: 2 tab Sodium Chloride ([place] Nasal [place] 0.65%) 0 ml EA NARE QIDPRN PRN PRN Reason: Nasal Congestion Sterile Water (Bacteriostatic Water) 1 ml FS PRN PRN PRN Reason: RECONSTITUTION Last Admin: 06/24/18 09:01 Dose: 1 ml Tamsulosin HCl (Flomax) 0.4 mg PO DAILY [facility] Last Admin: 06/24/18 09:00 Dose: 0.4 mg Temazepam (Restoril) 15 mg PO HSPRN PRN PRN Reason: Insomnia Last Admin: 06/21/18 23:41 Dose: 15 mg Trazodone HCl (Desyrel) 50 mg PO HS [facility] Last Admin: 06/23/18 21:03 Dose: 50 mg
[2018-06-24] MEDS: traZODone HCl 50 MG TAB PO SCH (21:08)
[2018-06-25] MEDS: ALPRAZolam 0.5 MG TAB PO PRN (05:12)
[2018-06-25] MEDS: Mometasone/Formoterol 120 PUFF INHALER INH SCH ×2 (07:34→18:29)
[2018-06-25] MEDS: Atorvastatin Calcium 10 MG TAB PO SCH (09:06)
[2018-06-25] MEDS: Amlodipine 5 MG TAB PO SCH (09:06)
[2018-06-25] MEDS: Enoxaparin Sodium 40 MG/0.4 ML SYRINGE SC SCH (09:07)
[2018-06-25] MEDS: Senokot S 8.6-50 MG TAB PO PRN (09:07)
[2018-06-25] MEDS: Magnesium Oxide 400 MG TAB PO SCH (09:07)
[2018-06-25] MEDS: Tamsulosin HCl 0.4 MG CAP PO SCH (09:07)
[2018-06-25] MEDS: guaiFENesin ER 600 MG TAB PO SCH ×2 (09:07→20:56)
[2018-06-25] MEDS: methylPREDNISolone Sod Succ 40 MG VIAL IVP SCH ×2 (09:08→20:58)
[2018-06-25] MEDS: Bacteriostatic Water 30 ML VIAL FS PRN (09:08)
--- NOTE | 2018-06-25 10:27 | PRG ---
DATE OF SERVICE: 06/25/2018 SUBJECTIVE: He is extremely dyspneic at rest. There has been no clear changes overnight. OBJECTIVE: VITAL SIGNS: He is afebrile. Vital signs stable. HEENT: Unremarkable. NECK: No JVD. LUNGS: Diminished, but clear breath sounds. CARDIAC: S1 and S2, regular. ABDOMEN: Soft. EXTREMITIES: No edema. LABORATORY DATA: His PFT showed FEV1 of about 25% predicted. Flow volume loop shows an extremely prolonged expiratory phase. ASSESSMENT: Very severe chronic obstructive pulmonary disease. PLAN: I have asked the outside agency to come and evaluate the patient for Trilog home ventilator as noninvasive ventilation may be helpful. Job ID: [id number]
--- NOTE | 2018-06-25 15:53 | PDOC.PN ---
- Subjective Encounter Start Date: 06/25/18 Encounter Start Time: 10:30 Subjective: pt up in bed feels better - Objective Resuscitation Status - Order Detail: 06/21/18 21:56 Resuscitation Status Routine Resuscitation Status: FULL: Full Resuscitation Vital Signs & Weight: Vital Signs (12 hours) Temp Pulse Resp BP BP Pulse Ox 06/25/18 15:20 88 16 06/25/18 11:43 96 06/25/18 11:18 97.7 F 91 20 111/56 L 96 06/25/18 11:00 88 15 06/25/18 09:06 88 116/55 L 06/25/18 08:05 93 L 06/25/18 07:33 88 19 06/25/18 07:11 97.6 F 97 22 H 116/55 L 93 L 06/25/18 05:11 98.4 F 101 H 22 H 142/62 H 95 Weight Admit Weight 132 lb 11.2 oz Weight 132 lb 11.2 oz I&O: 06/24/18 06/25/18 06/26/18 06:59 06:59 06:59 Intake Total 1640 600 Output Total 1175 Balance 465 600 Result Diagrams: 06/22/18 05:03 06/23/18 05:02 Phys Exam - Physical Examination Neck: no nodes, no JVD, supple, full ROM Respiratory: no wheezing, no rales, no rhonchi, wheezing present, clear to auscultation bilateral diminished Cardiovascular: RRR, no significant murmur, no rub, gallop, irregular Gastrointestinal: soft, non-tender, no distention, positive bowel sounds Dx/Plan (1) COPD exacerbation Code(s): J44.1 - CHRONIC OBSTRUCTIVE PULMONARY DISEASE W (ACUTE) EXACERBATION Status: Acute (2) HTN (hypertension) Code(s): I10 - ESSENTIAL (PRIMARY) HYPERTENSION Status: Acute - Plan will change iv abx to oral. -: will continue steroid/nebs -: echo results discussed with pt. -: appreciate pulmonary's help * . Review of Systems - Review of Systems Respiratory: Shortness of Breath Cardiovascular: negative: chest pain, palpitations, orthopnea, paroxysmal nocturnal dyspnea, edema, light headedness, other Gastrointestinal: negative: Nausea, Vomiting, Abdominal Pain, Diarrhea, Constipation, Melena, Hematochezia, Other - Medications/Allergies Allergies/Adverse Reactions: Allergies Allergy/AdvReac Type Severity Reaction Status Date / Time No Known Drug Allergies Allergy Verified 06/21/18 22:28 Medications: Current Medications Acetaminophen (Tylenol) 650 mg PO Q4H PRN PRN Reason: Headache/Fever/Mild Pain (1-3) Last Admin: 06/24/18 09:01 Dose: 650 mg Hydrocodone Bitart/Acetaminophen ([place] 5/325) 1 tab PO Q4H PRN PRN Reason: Moderate Pain (4-6) Last Admin: 06/22/18 12:52 Dose: 1 tab Albuterol/Ipratropium (Duoneb) 3 ml NEB [id number] [facility] Last Admin: 06/25/18 15:20 Dose: 3 ml Alprazolam (Xanax) 0.5 mg PO Q6H PRN PRN Reason: Anxiety Last Admin: 06/25/18 05:12 Dose: 0.5 mg Amlodipine Besylate (Norvasc) 5 mg PO DAILY [facility] Last Admin: 06/25/18 09:06 Dose: 5 mg Artificial Tears (Tears Naturale) 2 drop EA EYE PRN PRN PRN Reason: Dry Eyes Atorvastatin Calcium (Lipitor) 5 mg PO DAILY [facility] Last Admin: 06/25/18 09:06 Dose: 5 mg Bisacodyl (Dulcolax) [address] DAILYPRN PRN PRN Reason: Constipation Calcium Carbonate (Tums) 1,000 mg PO Q4H PRN PRN Reason: Heartburn or Indigestion Cholecalciferol (Vitamin D3) 2,000 units PO DAILY [facility] Last Admin: 06/25/18 09:07 Dose: 2,000 units Enoxaparin Sodium (Lovenox) 40 mg SC 0900 [facility] Last Admin: 06/25/18 09:07 Dose: 40 mg Guaifenesin (Mucinex) 600 mg PO Q12HR [facility] Last Admin: 06/25/18 09:07 Dose: 600 mg Guaifenesin (Robitussin Sf) 200 mg PO Q4H PRN PRN Reason: Cough Hydralazine HCl (Apresoline) 10 mg SLOW IVP Q4H PRN PRN Reason: SBP > 180 and HR < 70 Levofloxacin (Levaquin) 500 mg PO 0600 [facility] Loperamide HCl (Imodium) 2 mg PO PRN PRN PRN Reason: Diarrhea/Loose Stools Loratadine (Claritin) 10 mg PO DAILYPRN PRN PRN Reason: Sinus Symptoms Lorazepam (Ativan) 0.5 mg PO Q4H PRN PRN Reason: Anxiety Last Admin: 06/24/18 18:36 Dose: 0.5 mg Magnesium Oxide (Magnesium Oxide) 400 mg PO DAILY [facility] Last Admin: 06/25/18 09:07 Dose: 400 mg Methylprednisolone Sodium Succinate (Solu-Medrol) 40 mg IVP BID [facility] Last Admin: 06/25/18 09:08 Dose: 40 mg Mineral Oil/White Petrolatum (Eucerin Cream) 0 gm TOP BIDPRN PRN PRN Reason: Dry Skin Mometasone Furoate/Formoterol Fumar (Dulera 200 Mcg/5 Mcg Inhaler) 2 puff INH BID-RT [facility] Last Admin: 06/25/18 07:34 Dose: 2 puff Pantoprazole Sodium (Protonix) 40 mg PO DAILY [facility] Last Admin: 06/25/18 09:07 Dose: 40 mg Senna/Docusate Sodium (Senokot S) 2 tab PO BIDPRN PRN PRN Reason: Constipation Last Admin: 06/25/18 09:07 Dose: 2 tab Sodium Chloride ([place] Nasal [place] 0.65%) 0 ml EA NARE QIDPRN PRN PRN Reason: Nasal Congestion Sterile Water (Bacteriostatic Water) 1 ml FS PRN PRN PRN Reason: RECONSTITUTION Last Admin: 06/25/18 09:08 Dose: 1 ml Tamsulosin HCl (Flomax) 0.4 mg PO DAILY [facility] Last Admin: 06/25/18 09:07 Dose: 0.4 mg Temazepam (Restoril) 15 mg PO HSPRN PRN PRN Reason: Insomnia Last Admin: 06/21/18 23:41 Dose: 15 mg Trazodone HCl (Desyrel) 50 mg PO HS [facility] Last Admin: 06/24/18 21:08 Dose: 50 mg
[2018-06-25] MEDS: Lorazepam 0.5 MG TAB PO PRN ×2 (17:27→21:42)
[2018-06-25] MEDS: traZODone HCl 50 MG TAB PO SCH (20:56)
[2018-06-26] MEDS: Lorazepam 0.5 MG TAB PO PRN ×3 (02:20→11:47)
[2018-06-26] MEDS: Mometasone/Formoterol 120 PUFF INHALER INH SCH ×2 (05:58→19:17)
[2018-06-26] MEDS: Amlodipine 5 MG TAB PO SCH (08:55)
[2018-06-26] MEDS: Tamsulosin HCl 0.4 MG CAP PO SCH (08:56)
[2018-06-26] MEDS: guaiFENesin ER 600 MG TAB PO SCH ×2 (08:56→20:02)
[2018-06-26] MEDS: Magnesium Oxide 400 MG TAB PO SCH (08:56)
[2018-06-26] MEDS: Atorvastatin Calcium 10 MG TAB PO SCH (08:56)
[2018-06-26] MEDS: methylPREDNISolone Sod Succ 40 MG VIAL IVP SCH (08:56)
[2018-06-26] MEDS: Enoxaparin Sodium 40 MG/0.4 ML SYRINGE SC SCH (08:56)
--- NOTE | 2018-06-26 10:14 | PRG ---
DATE OF SERVICE: 06/26/2018 SUBJECTIVE: The patient is doing about the same. He had no acute complaints. OBJECTIVE: VITAL SIGNS: Temperature 97.4, pulse 93, respirations 22, O2 saturations 100% on 2 L, and blood pressure 136/65. HEENT: Unremarkable. NECK: No JVD. LUNGS: Few end-expiratory wheezes. He has gross diminished breath sounds throughout bilaterally. CARDIAC: S1 and S2, regular. ABDOMEN: Soft. EXTREMITIES: No edema. ASSESSMENT: 1. Severe chronic obstructive pulmonary disease with an FEV1 of about 25% predicted. 2. Chronic hypoxic respiratory failure secondary to chronic obstructive pulmonary disease. PLAN: I have assessed the patient and I am ordering volume ventilation for nocturnal and as needed daytime use for symptom management of chronic respiratory failure. Traditional home BiPAP is insufficient due to the severity of the disease. COPD is a major contributing factor to the patient's chronic respiratory failure. Main issue will be determining whether or not his [employer] insurance or the [facility] will be able to supply him with this apparatus. I think he is probably maximized on medications. 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 Job ID: [id number]
--- NOTE | 2018-06-26 13:51 | PDOC.PN ---
- Subjective Encounter Start Date: 06/26/18 Encounter Start Time: 10:30 Subjective: pt up in bed still complains of sob - Objective Resuscitation Status - Order Detail: 06/21/18 21:56 Resuscitation Status Routine Resuscitation Status: FULL: Full Resuscitation Vital Signs & Weight: Vital Signs (12 hours) Temp Pulse Resp BP Pulse Ox 06/26/18 13:35 107 H 22 H 93 L 06/26/18 11:47 98.2 F 121 H 32 H 151/72 H 98 06/26/18 09:45 111 H 20 95 06/26/18 08:55 93 06/26/18 07:11 97.4 F L 93 22 H 136/65 100 06/26/18 05:58 101 H 18 97 06/26/18 05:55 101 H 18 97 06/26/18 02:15 97.6 F 93 22 H 131/63 100 06/26/18 02:03 93 20 97 Weight Admit Weight 132 lb 11.2 oz Weight 132 lb 11.2 oz I&O: 06/25/18 06/26/18 06/27/18 06:59 06:59 06:59 Intake Total 1640 2380 Output Total 1175 1805 Balance 465 575 Result Diagrams: 06/22/18 05:03 06/23/18 05:02 Phys Exam - Physical Examination diminished all over Cardiovascular: RRR, no significant murmur, no rub, gallop, irregular Gastrointestinal: soft, non-tender, no distention, positive bowel sounds Musculoskeletal: no edema, pulses present, edema present Dx/Plan (1) COPD exacerbation Code(s): J44.1 - CHRONIC OBSTRUCTIVE PULMONARY DISEASE W (ACUTE) EXACERBATION Status: Acute (2) HTN (hypertension) Code(s): I10 - ESSENTIAL (PRIMARY) HYPERTENSION Status: Acute - Plan will give him one dose of lasix, change his steroids to oral -: will start him on citalopram and prn xanax -: possible discharge in am * . Review of Systems - Review of Systems Respiratory: Shortness of Breath Cardiovascular: negative: chest pain, palpitations, orthopnea, paroxysmal nocturnal dyspnea, edema, light headedness, other - Medications/Allergies Allergies/Adverse Reactions: Allergies Allergy/AdvReac Type Severity Reaction Status Date / Time No Known Drug Allergies Allergy Verified 06/21/18 22:28 Medications: Current Medications Acetaminophen (Tylenol) 650 mg PO Q4H PRN PRN Reason: Headache/Fever/Mild Pain (1-3) Last Admin: 06/24/18 09:01 Dose: 650 mg Hydrocodone Bitart/Acetaminophen ([place] 5/325) 1 tab PO Q4H PRN PRN Reason: Moderate Pain (4-6) Last Admin: 06/22/18 12:52 Dose: 1 tab Albuterol/Ipratropium (Duoneb) 3 ml NEB [id number] [facility] Last Admin: 06/26/18 13:35 Dose: 3 ml Alprazolam (Xanax) 0.5 mg PO Q6H PRN PRN Reason: Anxiety Last Admin: 06/25/18 05:12 Dose: 0.5 mg Amlodipine Besylate (Norvasc) 5 mg PO DAILY [facility] Last Admin: 06/26/18 08:55 Dose: 5 mg Artificial Tears (Tears Naturale) 2 drop EA EYE PRN PRN PRN Reason: Dry Eyes Atorvastatin Calcium (Lipitor) 5 mg PO DAILY [facility] Last Admin: 06/26/18 08:56 Dose: 5 mg Bisacodyl (Dulcolax) 10 mg [place] DAILYPRN PRN PRN Reason: Constipation Calcium Carbonate (Tums) 1,000 mg PO Q4H PRN PRN Reason: Heartburn or Indigestion Cholecalciferol (Vitamin D3) 2,000 units PO DAILY [facility] Last Admin: 06/26/18 08:56 Dose: 2,000 units Enoxaparin Sodium (Lovenox) 40 mg SC 0900 [facility] Last Admin: 06/26/18 08:56 Dose: 40 mg Guaifenesin (Mucinex) 600 mg PO Q12HR [facility] Last Admin: 06/26/18 08:56 Dose: 600 mg Guaifenesin (Robitussin Sf) 200 mg PO Q4H PRN PRN Reason: Cough Hydralazine HCl (Apresoline) 10 mg SLOW IVP Q4H PRN PRN Reason: SBP > 180 and HR < 70 Levofloxacin (Levaquin) 500 mg PO 0600 [facility] Last Admin: 06/26/18 06:02 Dose: 500 mg Loperamide HCl (Imodium) 2 mg PO PRN PRN PRN Reason: Diarrhea/Loose Stools Loratadine (Claritin) 10 mg PO DAILYPRN PRN PRN Reason: Sinus Symptoms Lorazepam (Ativan) 0.5 mg PO Q4H PRN PRN Reason: Anxiety Last Admin: 06/26/18 11:47 Dose: 0.5 mg Magnesium Oxide (Magnesium Oxide) 400 mg PO DAILY [facility] Last Admin: 06/26/18 08:56 Dose: 400 mg Mineral Oil/White Petrolatum (Eucerin Cream) 0 gm TOP BIDPRN PRN PRN Reason: Dry Skin Mometasone Furoate/Formoterol Fumar (Dulera 200 Mcg/5 Mcg Inhaler) 2 puff INH BID-RT [facility] Last Admin: 06/26/18 05:58 Dose: 2 puff Pantoprazole Sodium (Protonix) 40 mg PO DAILY [facility] Last Admin: 06/26/18 08:56 Dose: 40 mg Prednisone (Prednisone) 20 mg PO QAM[facility] Senna/Docusate Sodium (Senokot S) 2 tab PO BIDPRN PRN PRN Reason: Constipation Last Admin: 06/25/18 09:07 Dose: 2 tab Sodium Chloride ([place] Nasal [place] 0.65%) 0 ml EA NARE QIDPRN PRN PRN Reason: Nasal Congestion Tamsulosin HCl (Flomax) 0.4 mg PO DAILY [facility] Last Admin: 06/26/18 08:56 Dose: 0.4 mg Temazepam (Restoril) 15 mg PO HSPRN PRN PRN Reason: Insomnia Last Admin: 06/21/18 23:41 Dose: 15 mg Trazodone HCl (Desyrel) 50 mg PO HS [facility] Last Admin: 06/25/18 20:56 Dose: 50 mg
[2018-06-26] MEDS ORDERED: Citalopram 20 MG TAB PO SCH (14:00)
[2018-06-26] MEDS ORDERED: Furosemide 20 MG/2 ML VIAL SLOW IVP SCH (14:00)
[2018-06-26] MEDS: ALPRAZolam 0.5 MG TAB PO PRN (16:35)
[2018-06-26] MEDS: traZODone HCl 50 MG TAB PO SCH (20:02)
[2018-06-27] MEDS: Lorazepam 0.5 MG TAB PO PRN (03:01)
[2018-06-27] MEDS: ALPRAZolam 0.5 MG TAB PO PRN ×3 (06:37→19:27)
[2018-06-27] MEDS: Mometasone/Formoterol 120 PUFF INHALER INH SCH ×2 (08:09→19:37)
[2018-06-27] MEDS: Atorvastatin Calcium 10 MG TAB PO SCH (09:57)
[2018-06-27] MEDS: guaiFENesin ER 600 MG TAB PO SCH ×2 (09:57→20:03)
[2018-06-27] MEDS: Citalopram 20 MG TAB PO SCH (09:57)
[2018-06-27] MEDS: predniSONE 20 MG TAB PO SCH (09:57)
[2018-06-27] MEDS: Tamsulosin HCl 0.4 MG CAP PO SCH (09:57)
[2018-06-27] MEDS: Magnesium Oxide 400 MG TAB PO SCH (09:57)
[2018-06-27] MEDS: Enoxaparin Sodium 40 MG/0.4 ML SYRINGE SC SCH (09:58)
[2018-06-27] MEDS: Amlodipine 5 MG TAB PO SCH (09:58)
--- NOTE | 2018-06-27 12:33 | PDOC.PN ---
- Subjective Encounter Start Date: 06/27/18 Encounter Start Time: 10:30 Subjective: pt up in bed still is sob - Objective Resuscitation Status - Order Detail: 06/21/18 21:56 Resuscitation Status Routine Resuscitation Status: FULL: Full Resuscitation Vital Signs & Weight: Vital Signs (12 hours) Temp Pulse Resp BP BP Pulse Ox 06/27/18 12:20 98.6 F 91 24 H 111/59 L 95 06/27/18 11:32 71 16 06/27/18 09:58 71 151/72 H 06/27/18 08:49 97.7 F 71 24 H 151/72 H 06/27/18 08:09 72 12 06/27/18 08:00 97.7 F 71 24 H 151/72 H 91 L 06/27/18 03:04 97.9 F 89 22 H 129/61 99 06/27/18 02:11 82 22 H 92 L Weight Admit Weight 132 lb 11.2 oz Weight 132 lb 11.2 oz I&O: 06/26/18 06/27/18 06/28/18 06:59 06:59 06:59 Intake Total 2380 960 Output Total 1805 3125 Balance 575 -2165 Result Diagrams: 06/22/18 05:03 06/23/18 05:02 Phys Exam - Physical Examination Neck: no nodes, no JVD, supple, full ROM Respiratory: no wheezing, no rales, no rhonchi, wheezing present, clear to auscultation bilateral Cardiovascular: RRR, no significant murmur, no rub, gallop, irregular Gastrointestinal: soft, non-tender, no distention, positive bowel sounds Dx/Plan (1) COPD exacerbation Code(s): J44.1 - CHRONIC OBSTRUCTIVE PULMONARY DISEASE W (ACUTE) EXACERBATION Status: Acute (2) HTN (hypertension) Code(s): I10 - ESSENTIAL (PRIMARY) HYPERTENSION Status: Acute - Plan pt up in bed does not want to go home today. -: updated pt that there is not much medically we can do to make him feel less -: sob due to his severe COPD -: will keep him in house one more day, pt states that his machine will be -: delivered in am * . Review of Systems - Review of Systems Respiratory: negative: Cough, Dry, Shortness of Breath, Hemoptysis, SOB with Excertion, Pleuritic Pain, Sputum, Wheezing Cardiovascular: negative: chest pain, palpitations, orthopnea, paroxysmal nocturnal dyspnea, edema, light headedness, other Gastrointestinal: negative: Nausea, Vomiting, Abdominal Pain, Diarrhea, Constipation, Melena, Hematochezia, Other - Medications/Allergies Allergies/Adverse Reactions: Allergies Allergy/AdvReac Type Severity Reaction Status Date / Time No Known Drug Allergies Allergy Verified 06/21/18 22:28 Medications: Current Medications Acetaminophen (Tylenol) 650 mg PO Q4H PRN PRN Reason: Headache/Fever/Mild Pain (1-3) Last Admin: 06/24/18 09:01 Dose: 650 mg Hydrocodone Bitart/Acetaminophen ([place] 5/325) 1 tab PO Q4H PRN PRN Reason: Moderate Pain (4-6) Last Admin: 06/22/18 12:52 Dose: 1 tab Albuterol/Ipratropium (Duoneb) 3 ml NEB [id number] [facility] Last Admin: 06/27/18 11:32 Dose: 3 ml Alprazolam (Xanax) 0.5 mg PO Q6H PRN PRN Reason: Anxiety Last Admin: 06/27/18 06:37 Dose: 0.5 mg Amlodipine Besylate (Norvasc) 5 mg PO DAILY [facility] Last Admin: 06/27/18 09:58 Dose: 5 mg Artificial Tears (Tears Naturale) 2 drop EA EYE PRN PRN PRN Reason: Dry Eyes Atorvastatin Calcium (Lipitor) 5 mg PO DAILY [facility] Last Admin: 06/27/18 09:57 Dose: 5 mg Bisacodyl (Dulcolax) 10 mg [place] DAILYPRN PRN PRN Reason: Constipation Calcium Carbonate (Tums) 1,000 mg PO Q4H PRN PRN Reason: Heartburn or Indigestion Cholecalciferol (Vitamin D3) 2,000 units PO DAILY [facility] Last Admin: 06/27/18 09:58 Dose: 2,000 units Citalopram Hydrobromide (Celexa) 20 mg PO DAILY [facility] Last Admin: 06/27/18 09:57 Dose: 20 mg Enoxaparin Sodium (Lovenox) 40 mg SC 0900 [facility] Last Admin: 06/27/18 09:58 Dose: 40 mg Guaifenesin (Mucinex) 600 mg PO Q12HR [facility] Last Admin: 06/27/18 09:57 Dose: 600 mg Guaifenesin (Robitussin Sf) 200 mg PO Q4H PRN PRN Reason: Cough Hydralazine HCl (Apresoline) 10 mg SLOW IVP Q4H PRN PRN Reason: SBP > 180 and HR < 70 Loperamide HCl (Imodium) 2 mg PO PRN PRN PRN Reason: Diarrhea/Loose Stools Loratadine (Claritin) 10 mg PO DAILYPRN PRN PRN Reason: Sinus Symptoms Lorazepam (Ativan) 0.5 mg PO Q4H PRN PRN Reason: Anxiety Last Admin: 06/27/18 03:01 Dose: 0.5 mg Magnesium Oxide (Magnesium Oxide) 400 mg PO DAILY [facility] Last Admin: 06/27/18 09:57 Dose: 400 mg Mineral Oil/White Petrolatum (Eucerin Cream) 0 gm TOP BIDPRN PRN PRN Reason: Dry Skin Mometasone Furoate/Formoterol Fumar (Dulera 200 Mcg/5 Mcg Inhaler) 2 puff INH BID-RT [facility] Last Admin: 06/27/18 08:09 Dose: 2 puff Pantoprazole Sodium (Protonix) 40 mg PO DAILY [facility] Last Admin: 06/27/18 09:58 Dose: 40 mg Prednisone (Prednisone) 20 mg PO QAM[facility] Last Admin: 06/27/18 09:57 Dose: 20 mg Senna/Docusate Sodium (Senokot S) 2 tab PO BIDPRN PRN PRN Reason: Constipation Last Admin: 06/25/18 09:07 Dose: 2 tab Sodium Chloride ([place] Nasal [place] 0.65%) 0 ml EA NARE QIDPRN PRN PRN Reason: Nasal Congestion Tamsulosin HCl (Flomax) 0.4 mg PO DAILY [facility] Last Admin: 06/27/18 09:57 Dose: 0.4 mg Temazepam (Restoril) 15 mg PO HSPRN PRN PRN Reason: Insomnia Last Admin: 06/21/18 23:41 Dose: 15 mg Trazodone HCl (Desyrel) 50 mg PO HS [facility] Last Admin: 06/26/18 20:02 Dose: 50 mg
--- NOTE | 2018-06-27 13:21 | PRG ---
DATE OF SERVICE: 06/27/2018 SUBJECTIVE: This morning, he is doing better. He is less short of breath, still weak. OBJECTIVE: VITAL SIGNS: Respiratory rate 24, pulse 91, temperature 98, blood pressure 119/59. CHEST: Decreased breath sounds. Minimal rhonchi. CARDIAC: Normal S1 and S2. No gallops. ABDOMEN: No masses. 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 PLAN: Awaiting home vent. Nebs, steroids, PT, supportive care. Job ID: [id number]
--- NOTE | 2018-06-27 13:52 | EKG ---
Test Reason : Blood Pressure : / mmHG Vent. Rate : 111 BPM Atrial Rate : 111 BPM P-R Int : 000 ms QRS Dur : 080 ms QT Int : 352 ms P-R-T Axes : 000 033 085 degrees QTc Int : 478 ms Sinus tachycardia with 1st degree A-V block Low voltage QRS Cannot rule out Anterior infarct , age undetermined Abnormal ECG Confirmed by ESTEBAN RAY DO ([id number]), photo editor SARAY MCCARTHY ([id number]) on 06/27/2018 1:52:25 PM Referred By: Confirmed By:ESTEBAN RAY DO
[2018-06-27] MEDS: Acetaminophen 325 MG TAB PO PRN (16:12)
[2018-06-27] MEDS: traZODone HCl 50 MG TAB PO SCH (20:03)
[2018-06-28] MEDS: ALPRAZolam 0.5 MG TAB PO PRN ×2 (07:14→14:37)
[2018-06-28] MEDS: Tamsulosin HCl 0.4 MG CAP PO SCH (08:07)
[2018-06-28] MEDS: guaiFENesin ER 600 MG TAB PO SCH (08:08)
[2018-06-28] MEDS: Magnesium Oxide 400 MG TAB PO SCH (08:08)
[2018-06-28] MEDS: predniSONE 20 MG TAB PO SCH (08:08)
[2018-06-28] MEDS: Citalopram 20 MG TAB PO SCH (08:08)
[2018-06-28] MEDS: Amlodipine 5 MG TAB PO SCH (08:08)
[2018-06-28] MEDS: Atorvastatin Calcium 10 MG TAB PO SCH (08:09)
[2018-06-28] MEDS: Enoxaparin Sodium 40 MG/0.4 ML SYRINGE SC SCH (08:09)
[2018-06-28] MEDS: Mometasone/Formoterol 120 PUFF INHALER INH SCH ×2 (11:18→18:46)
--- NOTE | 2018-06-28 12:23 | PRG ---
DATE OF SERVICE: 06/28/2018 SUBJECTIVE: This morning, he is still having a lot of difficulty, breathing, coughing, wheezing often noninvasive ventilation. He said that this did not help him any. I scheduled for home nocturnal ventilation. OBJECTIVE: VITAL SIGNS: Trial sats are 96% on 3 L, respiratory rate 24, temperature 97, and blood pressure 140/62. CHEST: Decreased breath sounds. No wheezing. CARDIAC: Normal S1 and S2. No gallops. ABDOMEN: No masses. IMPRESSION: End-stage chronic obstructive pulmonary disease, major anxiety. PLAN: Continue nebs. Continue steroids. Job ID: [id number]
[2018-06-28 15:48] VITALS: BP 112/56; TEMP 97.9
--- NOTE | 2018-06-29 15:50 | DIS ---
DATE OF ADMISSION: 06/21/2018 DATE OF DISCHARGE: 06/28/2018 DISCHARGE DIAGNOSES: As of the following; 1. Chronic obstructive pulmonary disease exacerbation. 2. Hypertension. HOSPITAL COURSE: The patient is a 68-year-old male with a history of severe emphysema, who presented to the hospital with complaints of worsening shortness of breath. The patient at this time initially underwent a CTA to rule out any PE, which was essentially normal. He was treated as a COPD exacerbation with steroids, DuoNeb, and also Pulmonary was consulted due to the patient clinically not improving after a couple days of steroids and neb treatments. Pulmonary did do a pulmonary function test, which indicated that his FEV1 was only 25%. At this time, his medications were optimized again, however, he continued to have shortness of breath. At this time, he did have some mild elevated BNP and an echocardiogram was ordered, which indicated an EF 55% to 60% and just some mild tricuspid regurgitation. I had an extensive talk with the patient and family. The patient does realize that he does have extensive lung disease, however, he would like to be optimized to make him comfortable. The patient was prescribed a bedside commode. Also, he does have oxygen at home. The patient also was prescribed some anxiolytics and he was discharged home. HOME MEDICATIONS: His home medications will be; 1. Trazodone 50 mg at bedtime. 2. Xanax 0.5 q.6 p.r.n. 3. Celexa 20 mg daily. 4. Omeprazole 20 mg daily. 5. Norvasc 5 mg daily. 6. Budesonide two puffs b.i.d. 7. Prolia 60 subcu. 8. Flomax 0.4 daily. 9. Ipratropium 2 puffs inhalation q.i.d. DISCHARGE INSTRUCTIONS: [facility] 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 PHYSICAL EXAMINATION: VITAL SIGNS: Temperature , respirations 20, oxygen saturation 93% on 3 L, blood pressure 112/56. GENERAL: He is awake, alert, and oriented x3. Does not appear in distress. CV: S1 and S2 present. No murmurs, rubs, or gallops. ABDOMEN: Soft and nontender. Bowel sounds are present x2. EXTREMITIES: No edema. Pedal pulses are present x2. Again, he will be discharged home. Follow up with PCP and Pulmonary. Job ID: [id number]
--- NOTE | 2018-07-01 12:35 | PFT ---
PATIENT HISTORY: HEIGHT: 70 IN WEIGHT: 132 SMOKER: NO HOW LON YRS PACKS PER DAY: 2 PRODUCTIVE COUGH: LUNG DISEASE: PHYSICIAN INTERPRETATION FINAL REPORT: Patient had good effort and good cooperation. PFT data: FEV1 0.90 (26%), FVC 2.52 (54 %), FEV1/FVC 0.36 There is a reduction to FEV1 and the FVC The ratio is consistent with obstructive air flow limitation. The inspiratory and expiratory limbs are unremarkable, consistent with obstructive air flow limitation only. Bronchodilator study was not performed. IMPRESSION: Overall, these pulmonary function studies are most consistent with very severe obstructive air flow limitation. Clinical correlation is mandatory as this was an In-patient study. Beader Tender: CARMEN Metal Sheet Roller Operator: CARMEN QUACH
== END 2018-06-28 18:59 | disposition home or self-care (01) | DRG 189 ==
LOC: ERS 16:31 → 2SW 21:55 → OBSVTOIN 21:55 → INTOOBSV 06-23 09:34 → OBSVTOIN 06-23 09:34
PROVIDERS: ADMIT Family Medicine; ATTEND Family Medicine
PROC: 5A09357 Assistance with Respiratory Ventilation, Less than 24 Consecutive Hours, Continuous Positive Airway Pressure (ICD-10-PCS; principal; 2018-06-21)
DX: J96.21 Acute and chronic respiratory failure with hypoxia (principal); J44.1 Chronic obstructive pulmonary disease with (acute) exacerbation; Z99.81 Dependence on supplemental oxygen; I10 Essential (primary) hypertension; F41.8 Other specified anxiety disorders; N40.0 Benign prostatic hyperplasia without lower urinary tract symptoms; E78.5 Hyperlipidemia, unspecified; K21.9 Gastro-esophageal reflux disease without esophagitis; E55.9 Vitamin D deficiency, unspecified; Z87.891 Personal history of nicotine dependence
CPT/HCPCS: 36415; 71045; 71275; 80048; 80053; 82805; 83880; 84484; 85025; 87040; 90471; 90670; 93005; 93306; 94010; 94640; 94660; 94727; 96365; 96367; 96375; G0009; J0456; J0696; J1650; J1885; J1940; J1956; J2060; J2920; J3475; J7512; J7620; Q9967

== ENCOUNTER 2018-12-29 08:53 | Emergency (ER) | payer OTHER ==
--- NOTE | 2018-12-29 09:32 | RAD ---
PORTABLE CHEST 1 VIEW: Date: 12/29/18 Time: 0901 hours HISTORY: Left-sided chest pain, rib pain, radiating around to the back, with shortness of breath. FINDINGS: Comparison made with exam of 06/21/18. The heart size is normal. The aorta is tortuous. Changes of COPD are again seen. No lobar consolidati on, pneumothoraces, or pleural effusions are identified. IMPRESSION: No acute process. POS: [facility]
[2018-12-29] MEDS ORDERED: methylPREDNISolone Sod Succ/PF 125 MG/2 ML VIAL ONE (09:35)
[2018-12-29 09:37] LABS: #Eosinphils 0.1 thou/uL (0.0-0.7); #Lymphocytes 2.7 thou/uL (1.20-3.40); #Monocytes 1.7 thou/uL (0.11-0.59); #Neutrophils 9.6 thou/uL (1.40-6.50); %Basophils 0.2 % (0.0-1.0); %Eosinophils 0.9 % (0.0-10.0); %Monocytes 11.8 % (0.0-10.0); %Neutrophils 68.1 % (42.0-75.0); Hemoglobin 13.1 g/dL (14.0-18.0); Mean Corpuscular Hemoglobin 29.5 pg (27.0-31.0); Mean Corpuscular Volume 89.4 fL (78.0-98.0); Mean Platelet Volume 5.9 fL (7.4-10.4); Platelet Count 426 thou/uL (130-400); RBC Distribution Width 12.5 % (11.5-14.5); Red Blood Cell (RBC) Count 4.45 mill/uL (4.70-6.10); White Blood Cell (WBC) Count 14.1 thou/uL (4.8-10.8)
[2018-12-29 09:52] LABS: ALT (SGPT) 16 U/L (8-55); AST (SGOT) 23 U/L (5-34); Albumin 3.6 g/dL (3.4-4.8); Alkaline Phosphatase 153 U/L (40-110); Anion Gap 12 mmol/L (10-20); BUN (Urea Nitrogen) 34 mg/dL (8.4-25.7); Bilirubin, Total 0.4 mg/dL (0.2-1.2); Calc. Creatinine Clearance 0 mL/min (70-130); Calcium 9.2 mg/dL (7.8-10.44); Carbon Dioxide 26 mmol/L (23-31); Chloride 103 mmol/L (98-107); Estimated GFR-MDRD 56; Globulin 3.2 g/dL (2.4-3.5); Glucose 89 mg/dL (80-115); Potassium 4.3 mmol/L (3.5-5.1); Protein, Total 6.8 g/dL (5.8-8.1); Sodium 137 mmol/L (136-145)
[2018-12-29 10:12] LABS: CKMB 4.4 ng/mL (0-6.6)
[2018-12-29] MEDS ORDERED: Morphine 4 MG/ML VIAL ONE (11:39)
--- NOTE | 2018-12-29 13:20 | RAD ---
Radiograph thoracic spine 3 views: DATE: 12/29/2018 HISTORY: 68-year-old male with mid back pain. FINDINGS: There is broad indentation of the inferior endplate of T7 vertebral body. There is broad indentation depression of superior endplate of T9. Both of these findings were present on previous CT angiogram of the chest of 06/21/2018. There is focal dextroscoliosis of the mid-upper thoracic spine. There is exaggerated kyphosis. Diffuse osteopenia. IMPRESSION: 1. Old compression fracture of inferior endplate of T7. 2. Old compression fracture of superior endplate of T9. 3. Kyphoscoliosis.
[2018-12-29 14:44] LABS: Troponin I Less than 0.010 ng/mL (< 0.028)
[2018-12-29 14:51] LABS: Troponin I 0.013 ng/mL (< 0.028)
--- NOTE | 2019-01-02 14:39 | EKG ---
Test Reason : SOB/P Blood Pressure : / mmHG Vent. Rate : 077 BPM Atrial Rate : 077 BPM P-R Int : 176 ms QRS Dur : 080 ms QT Int : 392 ms P-R-T Axes : 058 003 057 degrees QTc Int : 443 ms Normal sinus rhythm Septal infarct , age undetermined Abnormal ECG Confirmed by ESTEBAN RAY DO ([id number]), staff editor SARAY CMCARTHY ([id number]) on 01/02/2019 2:38:56 PM Referred By: CORY Confirmed By:ESTEBAN RAY DO
== END 2018-12-29 15:16 | disposition home or self-care (01) ==
LOC: ERS 08:53
DX: J44.1 Chronic obstructive pulmonary disease with (acute) exacerbation (principal); M54.6 Pain in thoracic spine; I10 Essential (primary) hypertension; F41.9 Anxiety disorder, unspecified; F17.210 Nicotine dependence, cigarettes, uncomplicated; Z79.51 Long term (current) use of inhaled steroids; Z79.899 Other long term (current) drug therapy
CPT/HCPCS: 36415; 71045; 72072; 80053; 82553; 84484; 85025; 93005; 94640; 94760; 96374; 96375; J2270; J2930; J7620

== ENCOUNTER 2019-01-20 10:48 | Emergency (ER) | payer OTHER ==
[~2019-01-20 10:48] MED LIST changes: +ISOVUE-370 76%-LOCM 1 ML ONE; -Iopamidol 370 76% 100 ML VIAL ONE
[2019-01-20 11:23] LABS: #Basophils 0.1 thou/uL (0.0-0.2); #Eosinphils 0.1 thou/uL (0.0-0.7); #Lymphocytes 2.5 thou/uL (1.20-3.40); #Monocytes 1.4 thou/uL (0.11-0.59); #Neutrophils 8.7 thou/uL (1.40-6.50); %Basophils 0.5 % (0.0-1.0); %Eosinophils 0.6 % (0.0-10.0); %Lymphocytes 19.8 % (21.0-51.0); %Neutrophils 68.2 % (42.0-75.0); Hemoglobin 13.4 g/dL (14.0-18.0); Mean Corpuscular HGB CONC 32.6 g/dL (32.0-36.0); Mean Corpuscular Hemoglobin 29.1 pg (27.0-31.0); Mean Corpuscular Volume 89.4 fL (78.0-98.0); Mean Platelet Volume 5.8 fL (7.4-10.4); Platelet Count 381 thou/uL (130-400); RBC Distribution Width 12.9 % (11.5-14.5); White Blood Cell (WBC) Count 12.8 thou/uL (4.8-10.8)
--- NOTE | 2019-01-20 11:39 | RAD ---
Exam: Chest one view HISTORY:Pain, short of breath Comparison: 12/29/2018 FINDINGS: Lungs: Interstitial prominence of each lung with hyperinflation Cardiac silhouette:Normal size cardiac silhouette. Retrocardiac density indicates moderate sized hiat al hernia. There is tortuosity and ectasia of the calcified thoracic aorta. Pulmonary vessels: Normal Pleural Spaces: Clear Pneumothorax: None Osseous abnormalities: None of acuity. IMPRESSION: 1. COPD. 2. Moderate-sized hiatal hernia.
[2019-01-20 12:06] LABS: ALT (SGPT) 14 U/L (8-55); AST (SGOT) 21 U/L (5-34); Albumin 3.5 g/dL (3.4-4.8); Alkaline Phosphatase 267 U/L (40-110); Anion Gap 19 mmol/L (10-20); BUN (Urea Nitrogen) 31 mg/dL (8.4-25.7); Calc. Creatinine Clearance 0 mL/min (70-130); Calcium 8.9 mg/dL (7.8-10.44); Carbon Dioxide 21 mmol/L (23-31); Chloride 101 mmol/L (98-107); Estimated GFR-MDRD 60; Globulin 2.7 g/dL (2.4-3.5); Glucose 96 mg/dL (80-115); Potassium 4.6 mmol/L (3.5-5.1); Protein, Total 6.2 g/dL (5.8-8.1); Sodium 136 mmol/L (136-145)
[2019-01-20] MEDS ORDERED: Morphine 4 MG/ML VIAL ONE ×3 (13:44→21:13)
[2019-01-20] MEDS ORDERED: Albuterol Sulfate 2.5 mg/3 ml Neb ONE (13:48)
[2019-01-20] MEDS ORDERED: Albuterol Sulfate 2.5 mg/0.5 ml Neb ONE (13:48)
--- NOTE | 2019-01-20 16:23 | CT ---
Exam: CT angiogram of the chest HISTORY: Chest pain. Hypertension. COPD. COMPARISON: 06/21/2018 TECHNIQUE: CT angiogram of the chest is performed in the axial plane. Three-dimensional reformatted i mages are submitted for interpretation FINDINGS: Mediastinum: Enlarged subcarinal lymph node measuring 3.0 x 1.6 cm. Enlarged precarinal lymph node me asuring 1.7 x 1.4 cm. Enlarged right paratracheal lymph node measuring 0.6 x 1.5 cm. HEART: Normal size. No significant pericardial fluid. Aorta: No aneurysm or dissection Upper solid abdominal viscera: Visualized upper solid organs are grossly unremarkable. Upper GI: There is circumferential mucosal thickening involving the mid and distal thoracic esophagus . Large hiatal hernia is identified. Trachea and central bronchi: Patent Pleural spaces: Trace left pleural effusion Lung parenchyma: Stable panlobular emphysema. Pneumothorax: None Osseous structures: No lytic or blastic lesions. Stable chronic compression fractures involving the t horacic spine. Pulmonary arteries: Adequate contrast opacification pulmonary arterial system to the level of segment al arteries. No filling defect to suggest pulmonary embolism IMPRESSION: 1. Stable panlobular emphysema. 2. No evidence of pulmonary artery embolism to the level of the segmental arteries. 3. Extensive mediastinal lymphadenopathy, which is developed since the previous examination. Correlat e for infectious, inflammatory or malignant process 4. Hiatal hernia. There is esophageal mucosal thickening. Consider endoscopy. Transcribed Date/Time: 01/20/2019 4:27 PM
== END 2019-01-20 21:28 ==
LOC: ERS 10:48
DX: J44.1 Chronic obstructive pulmonary disease with (acute) exacerbation (principal); I10 Essential (primary) hypertension; F41.9 Anxiety disorder, unspecified; F17.210 Nicotine dependence, cigarettes, uncomplicated; Z79.51 Long term (current) use of inhaled steroids; Z79.899 Other long term (current) drug therapy
CPT/HCPCS: 36415; 71045; 71275; 80053; 84484; 85025; 93005; 96374; 96376; J2270; J7611; Q9966